=== PATIENT | female | born 1990 | race Caucasian/White ===

== ENCOUNTER → 2016-11-06 | Outpatient (CLI) | payer BC ==
[2016-01-04 11:47] VITALS: BP 128/80
[~2016-11-06] MED LIST: ALEVE220 MG PO; INDOMETHACIN PO; SEPTRA DS 8001 TAB PO
== END ==
LOC: LAB 14:56
DX: R50.81 Fever presenting with conditions classified elsewhere (principal); R11.0 Nausea; R30.0 Dysuria